=== PATIENT | female | born 1955 | race Caucasian/White ===

== ENCOUNTER 2017-05-03 09:18 | Emergency (ER) | payer BC, OTHER ==
[2017-05-03 09:28] VITALS: BP 112/72
--- NOTE | 2017-05-03 12:16 | XRAY Preliminary Report ---
Exam: XR KNEE 4 VIEW RT IMPRESSION: 1. Ossific densities are noted adjacent to the superior pole of the patella. Given the configuration, this most likely represents dystrophic calcification or ossification within the quadriceps tendon. C orrelate clinically for site of pain. Remaining osseous structures appear intact. 2. No effusions or normal alignment. [facility] SITE ID: [id number]
--- NOTE | 2017-05-03 12:21 | ED Physician Documentation ---
PD HPI LOWER EXT INJURY - Stated complaint Stated Complaint: R KNEE PX - Chief complaint Chief Complaint: Ext Problem - History obtained from History obtained from: Patient, Family - History of Present Illness PD HPI LOW EXT INJURY LOCATION: Right, Knee Type of injury: Fall Where injury occurred: Home Timing - onset: How many weeks ago (1) Timing - duration: Weeks (1) Timing - details: Abrupt onset, Still present Improved by: Rest, Immobilization Worsened by: Moving, Palpating Associated symptoms: No: Weakness, Numbness, Tingling, Swelling Contributing factors: No: Anticoagulated Similar symptoms before: Diagnosis (chronic knee pain) Recently seen: Not recently seen - Additional information Additional information: 61-year-old female was walking her dog last week the dog pulled her over and she fell onto her right side. She is uncertain exactly what she did to her knee but she has increased pain in that area since and this morning and the pain is intolerable. She is having pain with weightbearing and with movement of the knee. Review of Systems Constitutional: denies: Fever GI: denies: Vomiting Skin: denies: Rash Musculoskeletal: reports: Extremity pain, Joint pain, Pain with weight bearing. denies: Neck pain Neurologic: denies: Generalized weakness, Focal weakness PD PAST MEDICAL HISTORY - Past Medical History Past Medical History: Yes Psych: Depression - Present Medications Home Medications: Ambulatory Orders Medication Instructions Recorded Confirmed Fluoxetine HCl [Fluoxetine HCl] 05/03/17 HYDROcod/ACETAM 5/325 [Chester 5/325] 1 - 2 ea PO Q6H PRN #15 tablet 05/03/17 Metformin HCl [Metformin HCl] 05/03/17 Omeprazole [Omeprazole] 05/03/17 05/03/17 - Allergies Allergies/Adverse Reactions: Allergies Allergy/AdvReac Type Severity Reaction Status Date / Time Unable to Assess Allergy Verified 05/03/17 09:28 - Social History Does the pt smoke?: No Smoking Status: Never smoker PD ED PE NORMAL - Vitals Vital signs reviewed: Yes (normal ) - General General: No acute distress, Well developed/nourished - HEENT HEENT: Atraumatic, PERRL - Respiratory Respiratory: No respiratory distress - Derm Derm: Normal color, Warm and dry, No rash - Extremities Extremities: No deformity, No edema, Other (There is pain to palpation of the medial and lateral joint line and some opening of the medial joint line with valgus force applied. ) - Neuro Neuro: No motor deficit, No sensory deficit Eye Opening: Spontaneous Motor: Obeys Commands Verbal: Oriented GCS Score: 15 - Psych Psych: Normal mood, Normal affect Results - Vitals Vitals: Vital Signs - 24 hr 05/03/17 09:25 Temperature 36.5 C Heart Rate 79 Respiratory 20 Rate Blood Pressure 112/72 O2 Saturation 97 Oxygen O2 Source Room air - Rads (name of study) Right knee Radiology: Prelim report reviewed (Impression: 1. Ossific densities are noted adjacent to the superior pole of the patella. Given the configuration, this most likely represents a dystrophic calcification or ossification within the quadriceps tendon. Correlate clinically for site of pain. 2. Remaining osseous structures appear intact. No effusions or abnormal alignment.), EMP read indepedently, See rad report Procedures - Splint (location) knee Splint applied by: Tech Type of splint: Other (knee immobilizer) Other: Patient tolerated well, No complications, Neurovascular intact, Good alignment PD MEDICAL DECISION MAKING - ED course Complexity details: reviewed results, re-evaluated patient, considered differential, d/w patient, d/w family ED course: 61-year-old female with a fall and what appears to be a sprain of the right knee with the medial collateral ligament involved. She is placed into a knee immobilizer.She has some improvement with use of the immobilizer and we will refer her to orthopedics for follow-up. Departure - Departure Disposition: 01 Home, Self Care Clinical Impression: Sprain of collateral ligament of right knee Qualifiers: Encounter type: initial encounter Qualified Code(s): S83.401A - Sprain of unspecified collateral ligament of right knee, initial encounter Condition: Stable Instructions: ED Sprain Knee Collateral Ligaments Follow-Up: Agnes Gil PA [Primary Care Provider] - [facility] [Provider Group] Prescriptions: HYDROcod/ACETAM 5/325 [Chester 5/325] 1 - 2 ea PO Q6H PRN #15 tablet PRN Reason: Pain
--- NOTE | 2017-05-03 12:28 | XRAY Report ---
EXAM: RIGHT KNEE RADIOGRAPHY EXAM DATE: 05/03/2017 11:55 AM. CLINICAL HISTORY: Medial pain. COMPARISON: None. TECHNIQUE: 3 views. FINDINGS: Bones: Ossific densities are noted adjacent to the superior portion of the patella. Remaining osseous structures appear normal. Joints: Normal. No effusion. No subluxations. Soft Tissues: Normal. No soft tissue swelling. IMPRESSION: 1. Ossific densities are noted adjacent to the superior pole of the patella. Given the configuration, this most likely represents dystrophic calcification or ossification within the quadriceps tendon. C orrelate clinically for site of pain. Remaining osseous structures appear intact. 2. No effusions. Normal alignment. [facility] Referring Provider Line: [phone] SITE ID: [id number]
== END 2017-05-03 12:33 | disposition home or self-care (01) ==
LOC: ED 09:18
DX: S83.401A Sprain of unspecified collateral ligament of right knee, initial encounter (principal); W01.0XXA Fall on same level from slipping, tripping and stumbling without subsequent striking against object, initial encounter; Y93.K1 Activity, walking an animal; Y92.017 Garden or yard in single-family (private) house as the place of occurrence of the external cause
CPT/HCPCS: 29530; 99283

== ENCOUNTER 2017-05-30 09:40 | Outpatient (CLI) | payer BC, OTHER ==
--- NOTE | 2017-05-30 22:14 | MRI Report ---
EXAM: RIGHT KNEE MRI WITHOUT CONTRAST EXAM DATE: 05/30/2017 11:10 AM. CLINICAL HISTORY: Right medial collateral ligament sprain. COMPARISON: 05/03/2017 radiograph. TECHNIQUE: Multiplanar, multisequence T1-weighted and fluid-sensitive sequences of the knee without c ontrast. Other: None. FINDINGS: Bones: No fractures. Periarticular marrow edema is in the patella. Articular Cartilage: Unremarkable. Medial Meniscus: The medial meniscus is intact. Lateral Meniscus: The lateral meniscus is intact. Cruciate Ligaments: The anterior and posterior cruciate ligaments are intact. Collateral Ligaments: The medial collateral and lateral collateral ligamentous structures are intact. Tendons: There is mild tendinosis in the quadriceps tendon. The patellar, popliteus, and semimembrano joby tendons are unremarkable. Musculature: No edema or fatty atrophy. Other: No effusion. No popliteal cyst. No loose bodies. The medial and lateral retinacula are intact . Prepatellar subcutaneous edema is seen. IMPRESSION: 1. Mild quadriceps tendinosis. [facility] MUSCULOSKELETAL RADIOLOGY SECTION Referring Provider Line: [phone] SITE ID: [id number]
== END 2017-05-30 09:41 | disposition home or self-care (01) ==
LOC: DI 09:40
PROVIDERS: ATTEND Orthopaedic Surgery
DX: M67.961 Unspecified disorder of synovium and tendon, right lower leg (principal)

== ENCOUNTER 2017-08-05 14:39 | Outpatient (CLI) | payer BC, OTHER ==
--- NOTE | 2017-08-06 17:39 | Ultrasound Report ---
BILATERAL LOWER EXTREMITY VENOUS DUPLEX: 08/05/2017 CLINICAL INDICATION: Localized edema. COMPARISON: 01/29/2016 TECHNIQUE: Real-time sonographic vascular imaging was performed by the software engineering analyst through the bilateral lower extremities utilizing both color flow and Doppler spectral analysis. Multiple motor vehicle representative static images were saved for review. FINDINGS: A bilateral lower extremity venous sonogram is performed revealing the common femoral, superficial femoral, profunda femoris, and popliteal veins to be adequately visualized without intraluminal defects. There is normal venous compression, augmentation, phasicity, and spontaneity of venous flow. In the calf, the visualized more cephalad portions of posterior tibial and peroneal veins are grossly compressible, without filling defects. Scanning in the region of localized swelling in the left lateral calf demonstrates no abnormal fluid collection or mass. IMPRESSION: NO EVIDENCE OF DEEP VENOUS THROMBOSIS. TD: 08/06/2017 17:38
== END 2017-08-05 14:40 | disposition home or self-care (01) ==
LOC: DI 14:39
PROVIDERS: ATTEND Internal Medicine
DX: R22.42 Localized swelling, mass and lump, left lower limb (principal); M79.672 Pain in left foot; R60.0 Localized edema
CPT/HCPCS: 93970

== ENCOUNTER 2017-09-08 11:11 | Outpatient (CLI) | payer BC, OTHER ==
--- NOTE | 2017-09-08 12:27 | XRAY Report ---
CHEST X-RAY: 09/08/2017 HISTORY: Cough for 1 week. COMPARISON: 07/06/2009. FINDINGS: Normal heart size. Clear lungs. No pleural effusion or pneumothorax. Minor age-related changes in the spine. Surgical clips right upper quadrant. IMPRESSION: NEGATIVE FOR ACUTE FINDINGS OR SIGNIFICANT CHANGE SINCE 07/06/2009. TD: 09/08/2017 12:25
== END 2017-09-08 11:12 | disposition home or self-care (01) ==
LOC: DI 11:11
PROVIDERS: ATTEND Nurse Practitioner Family
DX: R05 Cough (principal)
CPT/HCPCS: 71046

== ENCOUNTER 2021-08-06 08:14 | Outpatient (CLI) | payer MEDICARE, BC, OTHER ==
--- NOTE | 2021-08-06 09:39 | DEXA Report ---
PROCEDURE: Dexa Spine and/or Hip INDICATIONS: POST MENOPAUSAL TECHNIQUE: Dual energy x-ray absorptiometry (DXA) was performed on a [employer] System. Regions measur ed are the AP Spine, femoral neck, and if needed forearm. COMPARISON: None. FINDINGS: Lumbar Spine: Bone Mineral Density 1.063 g/cm/cm,T score -1.0. Left Hip: Bone Mineral Density 0.894 g/cm/cm,T score -0.9. Left Femoral Neck: Bone Mineral Density 0.722 g/cm/cm, T score -2.3. (T score greater or equal to -1.0: NORMAL) (T score from -1.1 to -2.4: OSTEOPENIA) (T score less than or equal to -2.5 to: OSTEOPOROSIS) Impression: Osteopenia. Patients with diagnosis of osteoporosis or osteopenia should have regular bone mineral density assess ment. For those eligible for Medicare, routine testing is allowed once every 2 years. Testing frequ ency can be increased for patients who have rapidly progressing disease or for those who are receivin g medical therapy to restore bone mass. Reviewed by: Obdulio Herman MD on 08/06/2021 9:38 AM PST Approved by: Obdulio Hemran MD on 08/06/2021 9:38 AM PST Station ID: [id number]
== END 2021-08-06 08:15 | disposition home or self-care (01) ==
LOC: DI 08:14
PROVIDERS: ATTEND Nurse Practitioner Family
DX: M85.89 Other specified disorders of bone density and structure, multiple sites (principal); Z78.0 Asymptomatic menopausal state